=== PATIENT | female | born 1995 | race Two or more races ===

== ENCOUNTER 2017-01-11 06:41 | Emergency (ER) | payer MEDICAID ==
[2017-01-11] MEDS ORDERED: ONDANSETRON 4 MG ODT TAB ONE (07:36)
[2017-01-11] MEDS ORDERED: ACETAMINOPHEN 325 MG TABLET ONE (07:36)
[2017-01-11 08:25] LABS: SPECIFIC GRAVITY 1.015 (1.001-1.030); URINE BILIRUBIN NEGATIVE (NEGATIVE); URINE BLOOD 4+ (NEGATIVE); URINE GLUCOSE (UA) NEGATIVE (NEGATIVE); URINE LEUKOCYTE ESTERASE NEGATIVE (NEGATIVE); URINE NITRITE NEGATIVE (NEGATIVE); URINE PROTEIN TRACE (NEGATIVE); URINE UROBILINOGEN NORMAL (0-1 mg/dl)
[2017-01-11 08:27] LABS: URINE APPEARANCE CLEAR; URINE COLOR YELLOW
[2017-01-11 08:28] LABS: HCG,QUALITATIVE URINE POSITIVE
[2017-01-11 08:37] LABS: URINE BACTERIA FEW; URINE WBC 0-1 /hpf
== END 2017-01-11 09:28 | disposition home or self-care (01) ==
LOC: ED 06:41
DX: O98.512 Other viral diseases complicating pregnancy, second trimester (principal); R11.0 Nausea; Z3A.15 15 weeks gestation of pregnancy
CPT/HCPCS: 81025; 81001; 99283 ×2; A9270 ×2

== ENCOUNTER 2017-01-12 07:01 | Emergency (ER) | payer MEDICAID ==
--- NOTE | 2017-01-12 08:10 | US ---
Name: MIRELLA CAZARES Exam: Gallbladder Ultrasound Comparison: None Clinical History: Epigastric pain Findings: Ultrasound of the gallbladder was performed. Gallbladder is well-seen and is normal size at 6.7 cm in greatest dimension. Wall thickness is normal 2 mm. There is no sludge or stones and no pericholecystic fluid. Common bile duct is 2 mm. Ultrasound Shannon sign is negative. Impression: Normal Gallbladder Ultrasound Note: The above report was uploaded to [facility]'s electronic medical records system at 0806 hours.
== END 2017-01-12 09:00 | disposition home or self-care (01) ==
LOC: ED 07:01
DX: O26.891 Other specified pregnancy related conditions, first trimester (principal); R10.13 Epigastric pain; Z3A.00 Weeks of gestation of pregnancy not specified